=== PATIENT | male | born 1985 | race Hispanic/Latino ===

== ENCOUNTER 2018-01-12 04:50 | Emergency (ER) | payer SELFPAY ==
[2018-01-12] MEDS ORDERED: KETOROLAC 30 MG/ML INJ ONE (05:08)
[2018-01-12] MEDS ORDERED: ONDANSETRON 4 MG/2 ML VIAL ONE (05:08)
[2018-01-12] MEDS ORDERED: NA CHLORIDE 0.9% 1,000 ML ONE (05:11)
[2018-01-12 05:27] LABS: Absolute Lymphocytes (CBC) 4.1 K/uL (0.7-4.9); Absolute Monocytes 1.1 K/uL (0.1-1.3); Absolute Neutrophil 6.3 K/uL (1.8-8.0); Basophils % 0.4 % (0-1.3); Eosinophils % 1.2 % (0-4.4); Hematocrit 44.2 % (39.6-49.0); MCH 29.9 pg (27.0-35.0); MCV 90.2 fL (80-100); MPV 10.1 fL (7.6-11.3); Monocytes % 9.4 % (3.3-12.3)
[2018-01-12 05:41] LABS: Potassium 3.5 mEq/L (3.6-5.0)
[2018-01-12 05:47] LABS: Albumin 4.1 g/dL (3.2-5.5); Bilirubin Direct 0.1 mg/dL (0-0.2); Bilirubin Total 0.4 mg/dL (0.3-1.2)
[2018-01-12] MEDS ORDERED: MORPHINE 4 MG/ML SYR ONE (05:51)
[2018-01-12] MEDS ORDERED: FENTANYL CITR 100 MCG/2 ML ONE (06:48)
--- NOTE | 2018-01-12 07:07 | RAD REPORT ---
EXAM DESCRIPTION: CT - Stone Protocol - 01/12/2018 6:18 am CLINICAL HISTORY: Abdominal pain, left flank pain Images were submitted for preliminary [facility] report. Final dictation was issued prior to receiving preliminary report. COMPARISON: None. TECHNIQUE: Axial 5 mm thick images were obtained without oral or IV contrast. The [id number] span s the entirety of the system partially obscuring uppermost abdomen and lung bases. All CT scans are performed using dose optimization technique as appropriate and may include automated exposure control or mA/KV adjustment according to patient size. FINDINGS: Mild left-sided hydronephrosis is present secondary to a 6 mm mid left ureter stone. No ot her left-sided calculi. A 4 millimeter nonobstructing lower pole calyx calcification on the right. Th ere is no right-sided hydronephrosis. Minimal left renal edema and perinephric stranding noted. No holt spicious renal masses. Isodense masses and pyelonephritis are not excluded on a stone protocol CT sca n. Urinary bladder is only partially filled. No gross abnormality. Prostate gland and seminal vesicle s are normal range. Imaged portions of the liver, spleen and pancreas show no suspicious findings on non-contrast imaging . Liver attenuation is borderline fatty infiltrated. Gallbladder is contracted. No biliary tree dilat ation. No significant adrenal finding. No suspicious bowel findings. No mass or bulky lymphadenopathy. A 15 millimeter fat only umbilical hernia is present. No free air, free fluid or inflammatory stranding. No significant bony abnormality. Numerous granulomatous calcifications seen in the lower lung k[place]. No acute pleural or parenchymal process at either base. Heart size is upper normal to slightly enlarged. No pericardial effusion. IMPRESSION: Mild left-sided hydronephrosis secondary to a 6 millimeter mid left ureter stone. When viewed from a KUB projection, the stone overlies or is in close proximity to the L4 left side tr ansverse process. Isodense masses and pyelonephritis are not excluded on stone protocol technique.
--- NOTE | 2018-01-12 07:31 | EDPHYS ---
Physician Documentation [facility] Name: Pedro Luis Amato Jr Age: 32 yrs Sex: Male : 1985 Arrival Date: 01/12/2018 Time: 04:51 Bed 4 Private MD: ED Physician Juan Harkins HPI: 01/12 05:10 This 32 yrs old Male presents to ER via Ambulatory with complaints of Flank tw4 Pain. 05:10 The patient complains of pain in the left low back. The pain radiates to the left lower tw4 quadrant. Onset: The symptoms/episode began/occurred just prior to arrival, this morning. Modifying factors: The symptoms are alleviated by nothing. the symptoms are aggravated by nothing. Associated signs and symptoms: The patient has no apparent associated signs or symptoms. Severity of pain: At its worst the pain was moderate in the emergency department the pain is unchanged. The patient has not experienced similar symptoms in the past. Historical: - Allergies: 05:02 No Known Allergies; bb - Home Meds: 05:02 None [Active]; bb - PMHx: 05:02 None; bb - PSHx: 05:02 None; bb - Immunization history:: Adult Immunizations up to date. - Social history:: Smoking status: Patient/guardian denies using tobacco, Patient uses alcohol, occasionally. Patient/guardian denies using street drugs. - Ebola Screening: : No symptoms or risks identified at this time. ROS: 05:10 Constitutional: Negative for fever, chills, and weight loss, Cardiovascular: Negative tw4 for chest pain, palpitations, and edema, Respiratory: Negative for shortness of breath, cough, wheezing, and pleuritic chest pain. 05:10 Abdomen/GI: Positive for abdominal pain, nausea and vomiting, nausea, Negative for diarrhea, abdominal distension, anorexia, dysphagia, hematemesis, black/tarry stool, rectal pain, rectal bleeding, bowel incontinence, flatulence. 05:10 Back: Positive for flank pain, on the left. Exam: 07:30 Constitutional: This is a well developed, well nourished patient who is awake, alert, tw4 and in no acute distress. Eyes: Pupils equal round and reactive to light, extra-ocular motions intact. Lids and lashes normal. Conjunctiva and sclera are non-icteric and not injected. Cornea within normal limits. Periorbital areas with no swelling, redness, or edema. Chest/axilla: Normal chest wall appearance and motion. Nontender with no deformity. No lesions are appreciated. Cardiovascular: Regular rate and rhythm with a normal S1 and S2. No gallops, murmurs, or rubs. Normal PMI, no JVD. No pulse deficits. Respiratory: Lungs have equal breath sounds bilaterally, clear to auscultation and percussion. No rales, rhonchi or wheezes noted. No increased work of breathing, no retractions or nasal flaring. 07:30 Abdomen/GI: Soft, non-tender, with normal bowel sounds. No distension or tympany. No guarding or rebound. No evidence of tenderness throughout. MS/ Extremity: Pulses equal, no cyanosis. Neurovascular intact. Full, normal range of motion. 07:30 Abdomen/GI: Inspection: abdomen appears normal, Bowel sounds: normal, Palpation: moderate abdominal tenderness, in the left lower quadrant. Vital Signs: 05:02 BP 142 / 106; Pulse 82; Resp 22 S; Temp 97.4(O); Pulse Ox 100% ; Weight 86.18 kg (R); aa1 Height 5 ft. 7 in. (170.18 cm) (R); Pain 10/10; 05:54 BP 104 / 67; Pulse 56; Resp 20; Pulse Ox 100% on R/A; Pain 9/10; aa1 06:51 BP 134 / 95; Pulse 57; Resp 22; Pulse Ox 99% on R/A; Pain 9/10; aa1 07:54 BP 107 / 68; Pulse 58; Resp 18; Pulse Ox 99% ; sv 05:02 Body Mass Index 29.76 (86.18 kg, 170.18 cm) aa1 MDM: 05:03 Patient medically screened. tw4 05:10 Differential diagnosis: nephrolithiasis, pyelonephritis. Data reviewed: vital signs, tw4 nurses notes. Counseling: I had a detailed discussion with the patient and/or guardian regarding: the historical points, exam findings, and any diagnostic results supporting the discharge/admit diagnosis. 07:30 Medication response: morphine partially relieved the patient's pain. Medication tw4 response: fentanyl. Response to treatment: the patient's symptoms have resolved after treatment, the patient's pain is gone, and as a result, I will discharge patient. Special discussion: I discussed with the patient/guardian in detail that at this point there is no indication for admission to the hospital. It is understood, however, that if the symptoms persist or worsen the patient needs to return immediately for re-evaluation. 01/12 05:04 Order name: Amylase, Serum tw4 01/12 05:04 Order name: Basic Metabolic Panel tw4 01/12 05:04 Order name: CBC with Diff tw4 01/12 05:04 Order name: Creatinine for Radiology tw4 01/12 05:04 Order name: Hepatic Function 01/12 05:04 Order name: Lipase tw4 01/12 05:05 Order name: CT Stone Protocol 4 01/12 05:04 Order name: IV Saline Lock; Complete Time: 05:15 tw4 01/12 05:04 Order name: Labs collected and sent; Complete Time: 05:15 tw4 Administered Medications: 05:10 Drug: TORadol 30 mg Route: IVP; Site: right upper arm; aa1 05:53 Follow up: Response: No adverse reaction; Pain is unchanged, physician notified aa1 05:12 Drug: Zofran 4 mg Route: IVP; Site: right upper arm; aa1 05:53 Follow up: Response: No adverse reaction; Nausea is decreased aa1 05:14 Drug: NS 0.9% 1000 ml Route: IV; Rate: 1 bolus; Site: right upper arm; aa1 05:53 Follow up: IV Status: Completed infusion aa1 05:52 Drug: morphine 4 mg Route: IVP; Site: right upper arm; aa1 06:50 Follow up: Response: No adverse reaction; Pain is unchanged, physician notified aa1 06:51 Drug: fentaNYL (PF) 25 mcg Route: IVP; Site: right upper arm; aa1 07:53 Follow up: Response: No adverse reaction sv 06:52 CANCELLED (Duplicate Order): fentaNYL (PF) 25 mcg IVP once aa1 08:02 Drug: [place] 5 mg-325 mg 1 tabs Route: PO; sv 08:02 Follow up: Response: Medication administered at discharge. sv 08:02 Drug: Flomax 0.4 mg Route: PO; sv 08:02 Follow up: Response: Medication administered at discharge. sv Disposition: 01/12/18 07:30 Discharged to Home. Impression: Calculus of kidney with calculus of ureter. - Condition is Stable. - Discharge Instructions: Ureteral Colic, Ureteral Colic, [id number], Kidney Stones, [id number]. - Prescriptions for Ibuprofen 800 mg Oral Tablet - take 1 tablet by ORAL route every 8 hours As needed take with food; 30 tablet. Flomax 0.4 mg Oral Capsule, Sust. Release 24 hr - take 1 capsule by ORAL route once daily 1/2 hour following the same meal each day; 30 capsule. Tylenol- Codeine #3 300-30 mg Oral Tablet - take 2 tablet by ORAL route every 6 hours As needed; 30 tablet. - Work release form, Medication Reconciliation Form, Thank You Letter, Antibiotic Education, Prescription Opioid Use form. - Follow up: Dangelo Smith MD; When: As needed; Reason: Recheck today's complaints, Continuance of care, Re-evaluation by your physician. - Problem is new. - Symptoms have improved. Signatures: Dispatcher [employer] EDMaranda Andujar RN RN Claire Amaya RN RN aa1 Nidhi Foster RN RN bb Juan Harkins MD MD tw4 Corrections: (The following items were deleted from the chart) 06:52 06:51 fentaNYL (PF) 25 mcg IVP once ordered. tw4 aa1 08:31 07:30 01/12/2018 07:30 Discharged to Home. Impression: Calculus of kidney with calculus sv of ureter. Condition is Stable. Forms are Medication Reconciliation Form, Thank You Letter, Antibiotic Education, Prescription Opioid Use. Follow up: Dangelo Smith; When: As needed; Reason: Recheck today's complaints, Continuance of care, Re-evaluation by your physician. Problem is new. Symptoms have improved. tw4
--- NOTE | 2018-01-12 07:31 | ER ---
Nurse's Notes [facility] Name: Pedro Luis Amato Jr Age: 32 yrs Sex: Male : 1985 Arrival Date: 01/12/2018 Time: 04:51 Bed 4 Private MD: Diagnosis: Calculus of kidney with calculus of ureter Presentation: 01/12 05:00 Presenting complaint: Patient states: he is having left flank pain which started approx bb 30 minutes ago pt unable to keep still states pain was so bad he had to pull his car over. Transition of care: patient was not received from another setting of care. Onset of symptoms was January 12, 2018. Risk Assessment: Do you want to hurt yourself or someone else? Patient reports no desire to harm self or others. Initial Sepsis Screen: Does the patient meet any 2 criteria? No. Patient's initial sepsis screen is negative. Does the patient have a suspected source of infection? No. Patient's initial sepsis screen is negative. Care prior to arrival: None. 05:00 Method Of Arrival: Ambulatory bb 05:00 Acuity: TONY 3 bb Historical: - Allergies: 05:02 No Known Allergies; bb - Home Meds: 05:02 None [Active]; bb - PMHx: 05:02 None; bb - PSHx: 05:02 None; bb - Immunization history:: Adult Immunizations up to date. - Social history:: Smoking status: Patient/guardian denies using tobacco, Patient uses alcohol, occasionally. Patient/guardian denies using street drugs. - Ebola Screening: : No symptoms or risks identified at this time. Screenin:04 Abuse screen: Denies threats or abuse. Denies injuries from another. Nutritional aa1 screening: No deficits noted. Tuberculosis screening: No symptoms or risk factors identified. Fall Risk None identified. Assessment: 05:04 General: Appears in no apparent distress. uncomfortable, Behavior is cooperative, aa1 appropriate for age, restless. Pain: Complains of pain in left lower quadrant Pain radiates to left low back Pain began suddenly, Is continuous. Neuro: Level of Consciousness is awake, alert, obeys commands, Oriented to person, place, time, situation, Moves all extremities. Full function Gait is steady, Speech is normal. Cardiovascular: Heart tones S1 S2 present. Respiratory: Airway is patent Respiratory effort is even, unlabored, Respiratory pattern is regular, symmetrical. GI: Abdomen is non-distended, Abd is soft X 4 quads Reports lower abdominal pain, nausea. : No signs and/or symptoms were reported regarding the genitourinary system. EENT: No signs and/or symptoms were reported regarding the EENT system. Derm: Skin is intact, is healthy with good turgor, Skin is pink, warm \T\ dry. Musculoskeletal: Circulation, motion, and sensation intact. Capillary refill < 3 seconds. 05:53 Reassessment: Patient appears in no apparent distress at this time. No changes from aa1 previously documented assessment. Patient is alert, oriented x 3, equal unlabored respirations, skin warm/dry/pink. Awaiting CT scan. 06:06 Reassessment: Patient appears in no apparent distress at this time. Pt taken to CT. aa1 06:51 Reassessment: Patient appears in no apparent distress at this time. No changes from aa1 previously documented assessment. Patient and/or family updated on plan of care and expected duration. Pain level reassessed. Pt still c/o pain. Re-medicated per MD orders. Awaiting CT results. 07:52 Reassessment: Patient appears in no apparent distress at this time. Patient and/or sv family updated on plan of care and expected duration. Pain level reassessed. Patient is alert, oriented x 3, equal unlabored respirations, skin warm/dry/pink. 08:02 Reassessment: Pt to be medicated for pain and then getting another prescription from Dr dennis Harkins. Vital Signs: 05:02 BP 142 / 106; Pulse 82; Resp 22 S; Temp 97.4(O); Pulse Ox 100% ; Weight 86.18 kg (R); aa1 Height 5 ft. 7 in. (170.18 cm) (R); Pain 10/10; 05:54 BP 104 / 67; Pulse 56; Resp 20; Pulse Ox 100% on R/A; Pain 9/10; aa1 06:51 BP 134 / 95; Pulse 57; Resp 22; Pulse Ox 99% on R/A; Pain 9/10; aa1 07:54 BP 107 / 68; Pulse 58; Resp 18; Pulse Ox 99% ; sv 05:02 Body Mass Index 29.76 (86.18 kg, 170.18 cm) aa1 ED Course: 04:51 Patient arrived in ED. am2 05:01 Triage completed. bb 05:02 Arm band placed on Patient placed in an exam room, on a stretcher, on pulse oximetry. bb 05:03 Juan Harkins MD is Attending Physician. tw4 05:05 Patient has correct armband on for positive identification. Bed in low position. Call aa1 light in reach. Pulse ox on. NIBP on. Warm blanket given. 05:05 Initial lab(s) drawn, by me, sent to lab. Inserted saline lock: 20 gauge in right upper aa1 arm, using aseptic technique. Blood collected. 05:32 Geovani Celaya, RN is Primary Nurse. jd3 06:16 CT completed. Patient tolerated procedure well. Patient moved back from CT. kw1 06:18 CT Stone Protocol In Process Unspecified. EDMS 07:29 Dangelo Smith MD is Referral Physician. tw4 07:33 Maranda Mayes, JACOB is Primary Nurse. sv 07:52 No provider procedures requiring assistance completed. IV discontinued, intact, sv bleeding controlled, No redness/swelling at site. Pressure dressing applied. Administered Medications: 05:10 Drug: TORadol 30 mg Route: IVP; Site: right upper arm; aa1 05:53 Follow up: Response: No adverse reaction; Pain is unchanged, physician notified aa1 05:12 Drug: Zofran 4 mg Route: IVP; Site: right upper arm; aa1 05:53 Follow up: Response: No adverse reaction; Nausea is decreased aa1 05:14 Drug: NS 0.9% 1000 ml Route: IV; Rate: 1 bolus; Site: right upper arm; aa1 05:53 Follow up: IV Status: Completed infusion aa1 05:52 Drug: morphine 4 mg Route: IVP; Site: right upper arm; aa1 06:50 Follow up: Response: No adverse reaction; Pain is unchanged, physician notified aa1 06:51 Drug: fentaNYL (PF) 25 mcg Route: IVP; Site: right upper arm; aa1 07:53 Follow up: Response: No adverse reaction sv 06:52 CANCELLED (Duplicate Order): fentaNYL (PF) 25 mcg IVP once aa1 08:02 Drug: [place] 5 mg-325 mg 1 tabs Route: PO; sv 08:02 Follow up: Response: Medication administered at discharge. sv 08:02 Drug: Flomax 0.4 mg Route: PO; sv 08:02 Follow up: Response: Medication administered at discharge. sv Outcome: 07:30 Discharge ordered by . tw4 07:53 Discharged to home ambulatory, with family. sv 07:53 Condition: stable 07:53 Discharge instructions given to patient, Instructed on discharge instructions, follow up and referral plans. no drinking with medication, no driving heavy equipment, medication usage, Demonstrated understanding of instructions, follow-up care, medications, Prescriptions given X 2. 08:20 Patient left the ED. sv Signatures: Dispatcher [employer] EDMS Maranda Mayes RN RN sv Claire Drummond RN RN aa1 Nidhi Foster RN RN Tarah Hallman Jonathon RN RN Linda Nelson1 Juan Harkins MD MD tw4 Corrections: (The following items were deleted from the chart) 05:16 05:02 BP 142 / 106; Pulse 82bpm; Resp 100bpm; Spontaneous; Temp 97.4F Oral; 86.18 kg aa1 Reported; Height 5 ft. 7 in. Reported; BMI: 29.7; Pain 10/10; bb 05:53 05:52 Response: No adverse reaction; Nausea is decreased aa1 aa1 08:32 08:31 Patient left the ED. sv sv
[2018-01-12] MEDS ORDERED: HYDROCODONE/APAP 5/325 MG TAB ONE (08:02)
[2018-01-12] MEDS ORDERED: TAMSULOSIN 0.4 MG SR CAP ONE (08:03)
== END 2018-01-12 08:31 | disposition home or self-care (01) ==
LOC: ER 04:50
DX: N20.2 Calculus of kidney with calculus of ureter (principal)
CPT/HCPCS: 36415; 74176; 76377; 80048; 80076; 82150; 83690; 85025; 96361; 96374; 96375; 99284; J2405; J3010; J7030

== ENCOUNTER 2019-01-08 17:54 | Emergency (ER) | payer SELFPAY ==
[2019-01-08 18:43] LABS: Urine Blood NEGATIVE (NEG); Urine Glucose NEGATIVE (NEG); Urine Protein NEGATIVE (NEG); Urine Specific Gravity 1.025 (1.005-1.030); Urine pH 6.5 (5.0-7.0)
[2019-01-08] MEDS ORDERED: KETOROLAC 30 MG/ML INJ ONE (18:46)
[2019-01-08] MEDS ORDERED: HYDROCODONE/APAP 10/325 TAB ONE (18:46)
[2019-01-08] MEDS ORDERED: DIAZEPAM 5 MG TABLET ONE (18:46)
--- NOTE | 2019-01-08 18:48 | EDPHYS ---
Physician Documentation [facility] Name: Pedro Luis Amato Jr Age: 33 yrs Sex: Male : 1985 Arrival Date: 01/08/2019 Time: 17:56 Bed 12 Private MD: ED Physician Lexx Shepard HPI: 01/08 18:26 This 33 yrs old Male presents to ER via Ambulatory with complaints of Back swati Pain. 18:26 The patient presents with pain that is acute. The symptoms are located in the left mid swati back and right mid back. Onset: The symptoms/episode began/occurred yesterday. The pain does not radiate. Associated signs and symptoms: Pertinent positives: chest pain. The problem was sustained when lifting. Modifying factors: The patient symptoms are alleviated by remaining still, the patient symptoms are aggravated by any movement. Severity of symptoms: At their worst the symptoms were moderate, in the emergency department the symptoms are unchanged. The patient has not experienced similar symptoms in the past. Historical: - Allergies: 18:03 No Known Allergies; hb - Home Meds: 18:03 None [Active]; hb - PMHx: 18:03 None; hb - PSHx: 18:03 None; hb - Immunization history:: Adult Immunizations up to date. - Social history:: Smoking status: Patient/guardian denies using tobacco. - Ebola Screening: : No symptoms or risks identified at this time. - Family history:: not pertinent. ROS: 18:26 Constitutional: Negative for fever, chills, and weight loss, Eyes: Negative for injury, swati pain, redness, and discharge, ENT: Negative for injury, pain, and discharge, Neck: Negative for injury, pain, and swelling, Cardiovascular: Negative for chest pain, palpitations, and edema, Abdomen/GI: Negative for abdominal pain, nausea, vomiting, diarrhea, and constipation, : Negative for injury, bleeding, discharge, and swelling, MS/Extremity: Negative for injury and deformity, Skin: Negative for injury, rash, and discoloration, Neuro: Negative for headache, weakness, numbness, tingling, and seizure, Psych: Negative for depression, anxiety, suicide ideation, homicidal ideation, and hallucinations, Allergy/Immunology: Negative for hives, rash, and allergies, Endocrine: Negative for neck swelling, polydipsia, polyuria, polyphagia, and marked weight changes, Hematologic/Lymphatic: Negative for swollen nodes, abnormal bleeding, and unusual bruising. 18:26 Respiratory: Positive for cough, hemoptysis, shortness of breath. 18:26 Back: Positive for decreased range of motion, pain with movement. Exam: 18:26 Constitutional: This is a well developed, well nourished patient who is awake, alert, swati and in no acute distress. Head/Face: Normocephalic, atraumatic. Eyes: Pupils equal round and reactive to light, extra-ocular motions intact. Lids and lashes normal. Conjunctiva and sclera are non-icteric and not injected. Cornea within normal limits. Periorbital areas with no swelling, redness, or edema. ENT: Nares patent. No nasal discharge, no septal abnormalities noted. Tympanic membranes are normal and external auditory canals are clear. Oropharynx with no redness, swelling, or masses, exudates, or evidence of obstruction, uvula midline. Mucous membranes moist. Neck: Trachea midline, no thyromegaly or masses palpated, and no cervical lymphadenopathy. Supple, full range of motion without nuchal rigidity, or vertebral point tenderness. No Meningismus. Chest/axilla: Normal chest wall appearance and motion. Nontender with no deformity. No lesions are appreciated. Cardiovascular: Regular rate and rhythm with a normal S1 and S2. No gallops, murmurs, or rubs. Normal PMI, no JVD. No pulse deficits. Respiratory: Lungs have equal breath sounds bilaterally, clear to auscultation and percussion. No rales, rhonchi or wheezes noted. No increased work of breathing, no retractions or nasal flaring. Abdomen/GI: Soft, non-tender, with normal bowel sounds. No distension or tympany. No guarding or rebound. No evidence of tenderness throughout. Male : Normal genitalia with no discharge or lesions. Skin: Warm, dry with normal turgor. Normal color with no rashes, no lesions, and no evidence of cellulitis. MS/ Extremity: Pulses equal, no cyanosis. Neurovascular intact. Full, normal range of motion. Neuro: Awake and alert, GCS 15, oriented to person, place, time, and situation. Cranial nerves II-XII grossly intact. Motor strength 5/5 in all extremities. Sensory grossly intact. Cerebellar exam normal. Normal gait. Psych: Awake, alert, with orientation to person, place and time. Behavior, mood, and affect are within normal limits. 18:26 Back: pain, that is mild, that is moderate, ROM is painful, normal spinal alignment noted, CVA tenderness, is absent, muscle spasm, is appreciated in the left low back, left mid back, right mid back and right low back. Vital Signs: 18:02 BP 140 / 84; Pulse 86; Resp 16; Temp 98.5; Pulse Ox 100% on R/A; Weight 88.9 kg; Height hb 5 ft. 7 in. (170.18 cm); Pain 6/10; 19:16 BP 135 / 81; Pulse 80; Resp 18; Temp 98.3; Pulse Ox 99% ; rv 18:02 Body Mass Index 30.70 (88.90 kg, 170.18 cm) hb MDM: 18:16 Patient medically screened. [facility] 18:26 Data reviewed: vital signs, nurses notes, lab test result(s), urinalysis, radiologic swati studies, plain films. 01/08 18:31 Order name: Urine Dipstick--Ancillary (enter results); Complete Time: 18:45 01/08 18:17 Order name: Lumbar Spine (3 Views) XRAY [facility] 01/08 18:26 Order name: Chest Pa And Lat (2 Views) XRAY [facility] 01/08 18:17 Order name: Urine Dipstick-Ancillary (obtain specimen); Complete Time: 18:28 [facility] Administered Medications: 18:57 Drug: TORadol 60 mg Route: IM; Site: right deltoid; rv 19:16 Follow up: Response: Pain is decreased rv 19:10 Drug: Valium 5 mg Route: PO; rv 19:15 Follow up: Response: Medication administered at discharge. rv 19:10 Drug: [place] 10 mg-325 mg 1 tabs Route: PO; rv 19:15 Follow up: Response: Medication administered at discharge. rv Disposition: 01/08/19 18:47 Discharged to Home. Impression: Low back pain, Strain of muscle and tendon of back wall of thorax. - Condition is Stable. - Discharge Instructions: Back Pain, Adult, Musculoskeletal Pain, Back Injury Prevention, [id number]-[id number], Back Pain, Adult, [id number]-wb-[id number]. - Prescriptions for Ibuprofen 600 mg Oral Tablet - take 1 tablet by ORAL route every 8 hours As needed take with food; 21 tablet. Tylenol- Codeine #3 300-30 mg Oral Tablet - take 2 tablet by ORAL route every 6 hours As needed; 30 tablet. Valium 5 mg Oral Tablet - take 1 tablet by ORAL route every 8 hours As needed; 20 tablet. - Medication Reconciliation Form, Thank You Letter, Antibiotic Education, Prescription Opioid Use form. - Follow up: Private Physician; When: 2 - 3 days; Reason: Recheck today's complaints, Continuance of care, Re-evaluation by your physician. - Problem is new. - Symptoms have improved. Signatures: Dispatcher [employer] EDMS Lexx Shepard MD MD cha Baxter, Heather, RN RN Rodrick Owusu RN RN rv Corrections: (The following items were deleted from the chart) 19:18 18:47 01/08/2019 18:47 Discharged to Home. Impression: Low back pain; Strain of muscle rv and tendon of back wall of thorax. Condition is Stable. Discharge Instructions: Back Pain, Adult, Musculoskeletal Pain, Back Injury Prevention, Vewl-oo-Denm, Back Pain, Adult, Kcuh-oo-Xjrp. Prescriptions for Ibuprofen 600 mg Oral Tablet - take 1 tablet by ORAL route every 8 hours As needed take with food; 21 tablet, Tylenol-Codeine #3 300-30 mg Oral Tablet - take 2 tablet by ORAL route every 6 hours As needed; 30 tablet, Valium 5 mg Oral Tablet - take 1 tablet by ORAL route every 8 hours As needed; 20 tablet. and Forms are Medication Reconciliation Form, Thank You Letter, Antibiotic Education, Prescription Opioid Use. Follow up: Private Physician; When: 2 - 3 days; Reason: Recheck today's complaints, Continuance of care, Re-evaluation by your physician. Problem is new. Symptoms have improved. swati
--- NOTE | 2019-01-08 18:48 | ER ---
Nurse's Notes [facility] Name: Pedro Luis Amato Jr Age: 33 yrs Sex: Male : 1985 Arrival Date: 01/08/2019 Time: 17:56 Bed 12 Private MD: Diagnosis: Low back pain;Strain of muscle and tendon of back wall of thorax Presentation: 01/08 18:00 Presenting complaint: Mid back pain after lifting 80 pound blocks 3 days ago. hb Transition of care: patient was not received from another setting of care. Onset of symptoms was January 05, 2019. Risk Assessment: Do you want to hurt yourself or someone else? Patient reports no desire to harm self or others. Care prior to arrival: None. 18:00 Method Of Arrival: Ambulatory hb 18:00 Acuity: TONY 4 hb 18:18 Initial Sepsis Screen: Does the patient meet any 2 criteria? No. Patient's initial rv sepsis screen is negative. Does the patient have a suspected source of infection? No. Patient's initial sepsis screen is negative. Historical: - Allergies: 18:03 No Known Allergies; hb - Home Meds: 18:03 None [Active]; hb - PMHx: 18:03 None; hb - PSHx: 18:03 None; hb - Immunization history:: Adult Immunizations up to date. - Social history:: Smoking status: Patient/guardian denies using tobacco. - Ebola Screening: : No symptoms or risks identified at this time. - Family history:: not pertinent. Screenin:17 Abuse screen: Denies threats or abuse. Denies injuries from another. Nutritional rv screening: No deficits noted. Tuberculosis screening: No symptoms or risk factors identified. Fall Risk None identified. Assessment: 18:14 General: Appears in no apparent distress. uncomfortable, Behavior is calm, cooperative. rv Pain: Complains of pain in upper back Pain radiates to lower rib cage. Neuro: Level of Consciousness is awake, alert, obeys commands, Oriented to person, place, time, situation. Cardiovascular: Patient's skin is warm and dry. Respiratory: Reports cough at night Airway is patent. GI: Reports nausea, spit out pinkish sputum, probably blood. : No signs and/or symptoms were reported regarding the genitourinary system. EENT: No signs and/or symptoms were reported regarding the EENT system. Derm: Skin is intact. Musculoskeletal: No signs and/or symptoms reported regarding the musculoskeletal system. Vital Signs: 18:02 BP 140 / 84; Pulse 86; Resp 16; Temp 98.5; Pulse Ox 100% on R/A; Weight 88.9 kg; Height hb 5 ft. 7 in. (170.18 cm); Pain 6/10; 19:16 BP 135 / 81; Pulse 80; Resp 18; Temp 98.3; Pulse Ox 99% ; rv 18:02 Body Mass Index 30.70 (88.90 kg, 170.18 cm) hb ED Course: 17:56 Patient arrived in ED. rg4 18:02 Triage completed. hb 18:02 Arm band placed on. hb 18:09 Rodrick Khalil, JACOB is Primary Nurse. rv 18:16 Lexx Shepard MD is Attending Physician. swati 18:18 Patient has correct armband on for positive identification. Call light in reach. Adult rv w/ patient. Pulse ox on. NIBP on. 18:39 X-ray completed. Patient tolerated procedure well. Patient moved back from radiology. ls3 18:40 Lumbar Spine (3 Views) XRAY In Process Unspecified. EDMS 18:41 Chest Pa And Lat (2 Views) XRAY In Process Unspecified. EDMS 19:16 No provider procedures requiring assistance completed. Patient did not have IV access rv during this emergency room visit. Administered Medications: 18:57 Drug: TORadol 60 mg Route: IM; Site: right deltoid; rv 19:16 Follow up: Response: Pain is decreased rv 19:10 Drug: Valium 5 mg Route: PO; rv 19:15 Follow up: Response: Medication administered at discharge. rv 19:10 Drug: [place] 10 mg-325 mg 1 tabs Route: PO; rv 19:15 Follow up: Response: Medication administered at discharge. rv Outcome: 18:47 Discharge ordered by . swati 19:16 Discharged to home ambulatory, accompanied by a friend. patient instructed not to drive rv after discharge. 19:16 Condition: improved 19:16 Discharge instructions given to patient, Instructed on discharge instructions, follow up and referral plans. medication usage, Demonstrated understanding of instructions, follow-up care, medications, Prescriptions given X 3. 19:18 Patient left the ED. rv Signatures: Dispatcher [employer] EDMS Shepard Lexx, MD MD swati Garcia, Eva, RN RN Cayla Maynard rg4 Rodrick Khalil RN RN Santo Roche ls3 Corrections: (The following items were deleted from the chart) 18:02 18:00 Presenting complaint: Mid back pain after lifting 80 pound blocks 3 days ago, hb cough with blood tinged sputum since last night. hb
--- NOTE | 2019-01-08 18:57 | RAD REPORT ---
EXAM DESCRIPTION: RAD - Chest Pa And Lat (2 Views) - 01/08/2019 6:43 pm CLINICAL HISTORY: Cough;Congestion Chest pain. COMPARISON: <Comparisons> FINDINGS: The lungs are clear. The heart is normal in size. No displaced fractures. IMPRESSION: No acute or concerning finding suspected.
--- NOTE | 2019-01-08 18:57 | RAD REPORT ---
EXAM DESCRIPTION: RAD - Lumbar Spine 3 Views - 01/08/2019 6:44 pm CLINICAL HISTORY: Pain;Lower back pain Radiculopathy COMPARISON: <Comparisons> FINDINGS: Vertebral body heights appear maintained. No compression fracture noted. Disc spaces are m aintained. No spondylolysis or spondylolisthesis. IMPRESSION: Negative study.
== END 2019-01-08 19:18 | disposition home or self-care (01) ==
LOC: ER 17:54
DX: S39.012A Strain of muscle, fascia and tendon of lower back, initial encounter (principal); X50.9XXA Other and unspecified overexertion or strenuous movements or postures, initial encounter
CPT/HCPCS: 71046; 72100; 81003; 96372; 99284